=== PATIENT | male | born 1945 | race Caucasian/White ===

== ENCOUNTER 2023-01-29 16:01 | Emergency (ER) | payer OTHER ==
[~2023-01-29] VITALS: Ht 182.9 cm; Wt 79.0 kg
[2023-01-29] MEDS ORDERED: ACET500T58 PO (18:06)
[2023-01-29] MEDS ORDERED: IBUP1TAB5 PO (18:06)
[2023-01-29 18:28] VITALS: BP 145/80; PULSE 103; RESP 18; TEMP 98.3; O2SAT 99
== END 2023-01-29 18:32 | disposition home or self-care (01) ==
LOC: EDBD 16:01 → ER 16:06
DX: S39.012A Strain of muscle, fascia and tendon of lower back, initial encounter (principal); S63.501A Unspecified sprain of right wrist, initial encounter; V89.2XXA Person injured in unspecified motor-vehicle accident, traffic, initial encounter; Y93.89 Activity, other specified; Y92.89 Other specified places as the place of occurrence of the external cause; Y99.8 Other external cause status
CPT/HCPCS: 72100; 73110